=== PATIENT | female | born 1955 | race African-American/Black ===

== ENCOUNTER 2017-08-04 08:01 | Emergency (ER) | payer OTHER ==
[~2017-08-04] VITALS: Ht 167.6 cm; Wt 83.0 kg
[2017-08-04 09:18] LABS: BASOPHILS % 0.5 % (0.0-2.0); EOSINOPHILS % 0.6 % (0.0-5.0); HEMATOCRIT. 38.3 % (36.0-48.0); HEMOGLOBIN. 12.8 g/dL (12.0-16.0); LYMPHOCYTES % 15.6 % (20.0-50.0); MEAN CORPUSCULAR HEMOGLOBIN 27.3 pg (28.0-32.0); MEAN CORPUSCULAR VOLUME 81.6 fL (81.0-99.0); MEAN PLATELET VOLUME 8.7 fl (7.4-10.4); MONOCYTES % 6.8 % (2.0-8.0); NEUTROPHILS % 76.5 % (40.0-76.0); PLATELET 196 x1000/uL (130-400); RED BLOOD CELL COUNT 4.69 mill/uL (4.2-5.4); RED CELL DISTRIBUTION WIDTH 14.6 % (11.6-14.6)
[2017-08-04 09:26] LABS: PARTIAL THROMBOPLASTIN TIME 26.8 sec (23.4-31.0); PROTHROMBIN TIME 10.8 sec (9.4-11.6)
[2017-08-04 09:30] LABS: CHLORIDE 109 mEq/L (98-107)
[2017-08-04 09:40] LABS: TROPONIN I < 0.02 ng/mL (0.00-0.04)
[2017-08-04] MEDS ORDERED: HYDROCHLOROTHIAZIDE 25MG TABLET PO ONE (10:00)
[2017-08-04] MEDS ORDERED: LISINOPRIL 10MG TABLET PO ONE (10:00)
[2017-08-04] MEDS ORDERED: KETOROLAC 30MG/ML VIAL IV ONE (12:00)
[2017-08-04 12:54] VITALS: BP 175/93
== END 2017-08-04 13:26 | disposition home or self-care (01) ==
LOC: ER 08:16
DX: I10 Essential (primary) hypertension (principal); M79.605 Pain in left leg; M79.604 Pain in right leg; Z91.19 Patient's noncompliance with other medical treatment and regimen; Z90.710 Acquired absence of both cervix and uterus
CPT/HCPCS: 36415; 71045; 80053; 83690; 84484; 85025; 85610; 85730; 93005; 93970; 96374; 99285; J1885

== ENCOUNTER 2018-02-08 16:15 | Emergency (ER) | payer OTHER ==
[~2018-02-08] VITALS: Ht 167.6 cm; Wt 87.0 kg
[2018-02-08] MEDS ORDERED: LISI1TAB9 PO (16:41)
[2018-02-08] MEDS ORDERED: CLONIDINE 0.2MG TABLET PO ONE (17:15)
[2018-02-08 17:34] LABS: BASOPHILS % 0.7 % (0.0-2.0); EOSINOPHILS % 1.7 % (0.0-5.0); HEMATOCRIT. 40.5 % (36.0-48.0); HEMOGLOBIN. 13.4 g/dL (12.0-16.0); LYMPHOCYTES % 28.9 % (20.0-50.0); MEAN CORPUSCULAR HEMOGLOBIN 27.8 pg (28.0-32.0); MEAN CORPUSCULAR VOLUME 83.7 fL (81.0-99.0); MEAN PLATELET VOLUME 9.3 fl (7.4-10.4); MONOCYTES % 7.9 % (2.0-8.0); NEUTROPHILS % 60.8 % (40.0-76.0); PLATELET 230 x1000/uL (130-400); RED BLOOD CELL COUNT 4.84 mill/uL (4.2-5.4); RED CELL DISTRIBUTION WIDTH 14.6 % (11.6-14.6)
[2018-02-08 17:37] LABS: CHLORIDE 105 mEq/L (98-107)
[2018-02-08 17:56] LABS: PROTHROMBIN TIME 10.4 sec (9.1-11.1)
[2018-02-08 19:45] VITALS: BP 170/98
[2018-02-08] MEDS ORDERED: HYDRALAZINE HCL 10MG TABLET PO ONE (19:45)
== END 2018-02-08 20:38 | disposition home or self-care (01) ==
LOC: ER 20:25
DX: I10 Essential (primary) hypertension (principal)
CPT/HCPCS: 36415; 71045; 80053; 84484; 85025; 85610; 93005; 99285

== ENCOUNTER 2021-10-28 15:12 | Emergency (ER) | payer OTHER ==
[~2021-10-28] VITALS: Ht 167.6 cm; Wt 86.0 kg
[~2021-10-28 15:12] MED LIST: LISI1TAB9 PO
[2021-10-28 16:00] LABS: BASOPHILS % 0.7 % (0.0-2.0); EOSINOPHILS % 1.6 % (0.0-5.0); HEMATOCRIT. 38.2 % (36.0-48.0); HEMOGLOBIN. 12.5 g/dL (12.0-16.0); LYMPHOCYTES % 21.3 % (20.0-50.0); MEAN CORPUSCULAR HEMOGLOBIN 27.6 pg (28.0-32.0); MEAN CORPUSCULAR VOLUME 84.3 fL (81.0-99.0); MEAN PLATELET VOLUME 9.4 fl (7.4-10.4); MONOCYTES % 8.7 % (2.0-8.0); NEUTROPHILS % 67.7 % (40.0-76.0); PLATELET 198 x1000/uL (130-400); RED BLOOD CELL COUNT 4.53 mill/uL (4.2-5.4); RED CELL DISTRIBUTION WIDTH 14.8 % (11.6-14.6)
[2021-10-28 16:06] LABS: CHLORIDE 109 mEq/L (98-107)
[2021-10-28] MEDS ORDERED: LISINOPRIL 20MG TABLET PO ONE (17:45)
[2021-10-28 18:14] LABS: CLARITY URINE CLEAR (CLEAR); COLOR URINE YELLOW (YELLOW); KETONES URINE NEGATIVE (NEGATIVE); LEUKOCYTE ESTERASE URINE NEGATIVE (NEGATIVE); NITRITE URINE NEGATIVE (NEGATIVE); OCCULT BLOOD URINE NEGATIVE (NEGATIVE); PH URINE 5.5 (4.5-8.0); PROTEIN URINE NEGATIVE (NEGATIVE); SPECIFIC GRAVITY URINE 1.013 (1.005-1.030); UROBILINOGEN URINE 0.2 E.U./dL (0.2-1.0)
[2021-10-28] MEDS ORDERED: HYDROCHLOROTHIAZIDE 12.5MG CAPSULE PO ONE (19:15)
[2021-10-28 19:25] VITALS: BP 198/101
== END 2021-10-28 19:28 | disposition home or self-care (01) ==
LOC: ER 15:12
DX: I10 Essential (primary) hypertension (principal); Z91.14 Patient's other noncompliance with medication regimen
CPT/HCPCS: 36415; 80053; 81003; 85025; 99283